=== PATIENT | female | born 1945 | race Caucasian/White ===

== ENCOUNTER 2024-05-06 12:37 | Inpatient (IN) ==
[2024-05-06 14:50] VITALS: BMI 21.0
[2024-05-06] MEDS: NS 1,000 ML IV 1,000 ML IV ONE (16:52)
[2024-05-06] MEDS: NS 1,000 ML IV 1,000 ML IV SCH (16:53)
--- NOTE | 2024-05-06 16:57 | CT ---
EXAM:BRAIN W/O CONHISTORY:s/p fall;COMPARISON:None.TECHNIQUE:Axial CT of the head is performed from the base of the skull through the vertex without contrast . Multiplaner reformats are generated from the original axial data.FINDINGS:There is no evidence of an acute intracranial hemorrhage or extra-axial fluid collection. There is no mass effect, midline shift, or evidence of cerebral edema. The ventricular size is normal. Cortical de la rosa-white matter differentiation is maintained without sulcal effacement. There is no evidence of an acute stage, large artery territorial infarction.The calvarium is intact. The paranasal sinuses and mastoid air cells are clear. The cerebellar tonsils are normal in position. No suprasellar asymmetry is identified.Age-related moderate generalized cortical volume loss is observed. The ventricular size is concordant. There are degenerative white matter changes affiliated with chronic small-vessel ischemia.IMPRESSION:No acute intracranial abnormalitiesChronic age related involutional changes of the brain parenchyma.Radiation dose reduction was achieved through individualized adjustment of kVP and/or mA, through adaptive statistical iterative reconstruction, and/or through automated tube current modulation.THIS IS AN ELECTRONICALLY VERIFIED FINAL REPORT05/06/2024 4:53 PM - Electronically signed by Julian Abebe MD
--- NOTE | 2024-05-06 18:38 | DR.H&P ---
H&P History & Physical for Day of: H&P Date: 05/06/24 Chief Complaint Chief Complaint: Multiple falls, Not eating, Low blood pressure History of Present Illness History of Present Illness: the patient is a 79-year-old white female who presents to the office with her with complaints of having had 4 falls yesterday. States that she is extremely weak and when she gets that she will lose her balance. Has been states that she is not eating or drinking at home. States she has lost a lot of weight. Patient does have dementia and states that she is drinking plenty of fluids. Complains of pain to right side of abdomen after falling. States she is voiding. States she does feel bad. Denies nausea and vomiting. past and states that he's not sure if she has not taken her medications incorrectly. States that he was administering her medications but finally let her start again. states she could have taken extra of her medication. Past Medical History Past Medical History: Arthritis (Rheumatoid Arthritis), Dementia and Dyslipidemia Past Surgical History Surgical History: and Hysterectomy Family History Family Medical History: [place] Social History Does patient currently use any type of tobacco product: No Type of Tobacco Use: None Does any household member use tobacco: No Alcohol Use: None Drug Use: None Medications Home Medications: Home Medications Medication Instructions Recorded Confirmed Type clonazepam 1 mg tablet 1 mg PO QPM PRN 05/06/24 05/06/24 History duloxetine 60 mg capsule,delayed 60 mg PO QDAY 05/06/24 05/06/24 History release levothyroxine 88 mcg tablet 88 mcg PO QDAY 05/06/24 05/06/24 History quetiapine 25 mg tablet 25 mg PO BID 05/06/24 05/06/24 History Allergies Allergies Allergy/AdvReac Type Severity Reaction Status Date / Time No Known Allergies Allergy Verified 05/06/24 18:00 Review of Systems Constitutional: Weakness (falls) Gastrointestinal: Abdominal Pain Physical Exam Vital Signs: Vital Signs Temperature 98.8 F Temperature 98.5 F Pulse Rate [Right Brachial] 85 Pulse Rate [Right Brachial] 82 Respiratory Rate 20 Respiratory Rate 17 Blood Pressure [Left Arm] 129/59 Blood Pressure [Left Arm] 110/62 O2 Sat by Pulse Oximetry 97 O2 Sat by Pulse Oximetry 100 Oriented: Person and Place Eyes: Normal Ear: Normal Nose: Normal Throat: Normal Respiratory: Clear Throughout Cardiovascular: Normal : Normal Auscultation: Bowel Sounds: Normal Palpation: Normal Tenderness: RLQ and Moderate Skin: Normal Musculoskeletal: Motor Deficit (BLE weakness) Psychiatric: Agitation Mood Description: Anxious Affect: Flat Speech Pattern: Clear Assessment/Plan (1) Recurrent falls: Status: Acute (2) Rheumatoid arthritis: Narrative Support Text: Stable with current medication regimen. Status: Chronic (3) Weakness: Narrative Support Text: Labs, CT Status: Acute (4) Hypotension: Narrative Support Text: Labs, CT, Monitor BP Status: Acute (5) Abdominal pain due to injury: Narrative Support Text: CT abdomen Status: Acute
[2024-05-06 18:56] LABS: BASOPHILS # (AUTO) 0.1 X10^3/uL (0.0-0.1); BASOPHILS % (AUTO) 0.8 % (0.2-1.0); EOSINOPHILS % (AUTO) 0.5 % (0.9-2.9); HEMATOCRIT 26.7 % (36.0-47.0); HEMOGLOBIN 8.9 g/dL (12.0-16.0); LYMPHOCYTES # (AUTO) 1.5 X10^3/uL (1.3-2.9); LYMPHOCYTES % (AUTO) 21.3 % (21.0-51.0); MEAN CORPUSCULAR HEMOGLOBIN 27.4 pg (27.0-34.0); MEAN CORPUSCULAR HGB CONC 33.3 g/dL (33.0-35.0); MEAN CORPUSCULAR VOLUME 82.3 fL (80.0-100.0); MEAN PLATELET VOLUME 7.7 fL (7.4-11.0); MONOCYTES # (AUTO) 1.7 x10^3/uL (0.3-0.8); MONOCYTES % (AUTO) 23.7 % (0.0-13.0); NEUTROPHILS # (AUTO) 3.8 x10^3/uL (2.2-4.8); NEUTROPHILS % (AUTO) 53.7 % (42.0-75.0); PLATELET COUNT 97 X10^3/uL (150.0-450.0); RED BLOOD COUNT 3.24 X10^6/uL (3.5-5.4); RED CELL DISTRIBUTION WIDTH 19.5 % (11.6-16.5); WHITE BLOOD COUNT 7.1 X10^3/uL (3.6-10.0)
[2024-05-06 19:03] LABS: ALANINE AMINOTRANSFERASE 8 Units/L (12-78); ALBUMIN 2.1 g/dL (3.4-5.0); ALKALINE PHOSPHATASE 119 Units/L (46-116); ASPARTATE AMINO TRANSFERASE 22 Units/L (15-37); BLOOD UREA NITROGEN 20 mg/dL (7-18); CALCIUM 8.2 mg/dL (8.5-10.1); CHLORIDE 101 mmol/L (98-107); COR CA(FOR HYPOALB) 9.7 mg/dL (8.5-10.1); CREATININE 1.38 mg/dL (0.55-1.02); GLUCOSE 108 mg/dL (65-99); MAGNESIUM 1.6 mg/dL (2.0-2.9); SODIUM 135 mmol/L (136-145); TOTAL PROTEIN 5.8 g/dL (6.4-8.2); TSH (3RD GENERATION) 0.264 uIU/mL (0.358-3.74); eGFR NON BLACK RACES 39 (>60)
[2024-05-06 19:19] LABS: ANISOCYTOSIS SLIGHT; PLATELET MORPHOLOGY COMMENT NORMAL (NORMAL); TARGET CELLS PRESENT
[2024-05-07 06:31] LABS: BASOPHILS # (AUTO) 0.1 X10^3/uL (0.0-0.1); BASOPHILS % (AUTO) 0.7 % (0.2-1.0); EOSINOPHILS # (AUTO) 0.1 x10^3/uL (0.0-0.2); EOSINOPHILS % (AUTO) 0.7 % (0.9-2.9); HEMATOCRIT 25.6 % (36.0-47.0); HEMOGLOBIN 8.6 g/dL (12.0-16.0); LYMPHOCYTES # (AUTO) 1.7 X10^3/uL (1.3-2.9); LYMPHOCYTES % (AUTO) 21.8 % (21.0-51.0); MEAN CORPUSCULAR HEMOGLOBIN 27.7 pg (27.0-34.0); MEAN CORPUSCULAR HGB CONC 33.6 g/dL (33.0-35.0); MEAN CORPUSCULAR VOLUME 82.4 fL (80.0-100.0); MEAN PLATELET VOLUME 7.6 fL (7.4-11.0); MONOCYTES # (AUTO) 1.7 x10^3/uL (0.3-0.8); MONOCYTES % (AUTO) 22.3 % (0.0-13.0); NEUTROPHILS # (AUTO) 4.2 x10^3/uL (2.2-4.8); NEUTROPHILS % (AUTO) 54.5 % (42.0-75.0); PLATELET COUNT 80 X10^3/uL (150.0-450.0); RED BLOOD COUNT 3.11 X10^6/uL (3.5-5.4); RED CELL DISTRIBUTION WIDTH 19.1 % (11.6-16.5); WHITE BLOOD COUNT 7.6 X10^3/uL (3.6-10.0)
[2024-05-07 06:47] LABS: ALANINE AMINOTRANSFERASE 9 Units/L (12-78); ALKALINE PHOSPHATASE 114 Units/L (46-116); ASPARTATE AMINO TRANSFERASE 21 Units/L (15-37); BLOOD UREA NITROGEN 19 mg/dL (7-18); CALCIUM 8.1 mg/dL (8.5-10.1); CARBON DIOXIDE 23.3 mmol/L (21-32); CHLORIDE 100 mmol/L (98-107); COR CA(FOR HYPOALB) 9.7 mg/dL (8.5-10.1); CREATININE 1.21 mg/dL (0.55-1.02); GLUCOSE 107 mg/dL (65-99); MAGNESIUM 1.6 mg/dL (2.0-2.9); POTASSIUM 3.8 mmol/L (3.5-5.1); SODIUM 134 mmol/L (136-145); TOTAL PROTEIN 5.5 g/dL (6.4-8.2); eGFR NON BLACK RACES 46 (>60)
[2024-05-07 07:02] LABS: BAND NEUTROPHILS % 4 % (0-10); METAMYELOCYTES % 2; MYELOCYTES % 2; PLATELET MORPHOLOGY COMMENT NORMAL (NORMAL)
[2024-05-07 07:03] LABS: ANISOCYTOSIS SLIGHT; TARGET CELLS SLIGHT
[2024-05-07] MEDS ORDERED: CONSULT PHARMACY - POTASSIUM & MAGNESIUM XX SCH (08:00)
--- NOTE | 2024-05-07 08:04 | RAD ---
EXAM:CHEST, PA/LAT ADULTHISTORY:s/p fall;COMPARISON:No relevant prior studies were available for comparison at the time of interpretation.TECHNIQUE:CHEST, PA/LAT ADULTFINDINGS:Chest:Lines and tubes: NoneMediastinum: Cardiac and mediastinal shadow is within normal limits for size and contour.Pulmonary vessels: No pulmonary vascular congestion.Lung sawyer: No suspicious airspace opacity.Pleura: No effusion. No pneumothorax.Bones and soft tissues: No acute osseous or soft tissue abnormality.IMPRESSION:1. No acute cardiopulmonary abnormalityTHIS IS AN ELECTRONICALLY VERIFIED FINAL REPORT05/07/2024 8:01 AM - Electronically signed by Jimmy Pollock MD
[2024-05-07] MEDS: MAG-OX TAB PO SCH ×2 (08:38→21:45)
--- NOTE | 2024-05-07 08:46 | CT ---
EXAM:CT bony pelvis without contrastHISTORY:Fall, bilateral hip painTECHNIQUE:Axial noncontrast images with coronal and sagittal reformats. Dose reduction procedures were used with mA/kv adjusted for body size.COMPARISON:NoneFINDINGS:The sacrum, coccyx, and SI joints appear intact. The pelvic bones appear intact. Hip joints are bilaterally intact. No joint erosions are identified. Proximal femurs appear intact. No hip joint effusions are identified. No periarticular soft tissue abnormality is identified. No definite pelvic soft tissue abnormality identified to the limitations of an unenhanced examination.IMPRESSION:No fractures identifiedTHIS IS AN ELECTRONICALLY VERIFIED FINAL REPORT05/07/2024 8:43 AM - Electronically signed by Javad Muniz MD
[2024-05-07 11:17] LABS: BILIRUBIN,URINE 2+ (NEGATIVE); BLOOD/HEMOGLOBIN,URINE 1+ (NEGATIVE); GLUCOSE, URINE NEGATIVE (NEGATIVE); KETONES,URINE 1+ (NEGATIVE); LEUKOCYTE ESTERASE ,URINE 1+ (NEGATIVE); NITRITES,URINE NEGATIVE (NEGATIVE); PROTEIN,URINE 2+ (NEGATIVE); UROBILINOGEN,URINE 3+ (NORMAL)
[2024-05-07 11:31] LABS: APPEARANCE,URINE CLEAR (CLEAR); COLOR,URINE AMBER (YELLOW)
[2024-05-07 11:33] LABS: BACTERIA,URINE TRACE /HPF (NEGATIVE); RBC,URINE 0-2 /HPF (0-3); SQUAMOUS EPITHELIAL CELL,UR RARE /HPF (NEGATIVE)
[2024-05-07 11:40] LABS: FREE T4 (FREE THYROXINE) 1.09 ng/dL (0.76-1.46); TSH (3RD GENERATION) 0.392 uIU/mL (0.358-3.74)
--- NOTE | 2024-05-07 13:34 | VAS ---
EXAM:CAROTID USHISTORY:DIZZINESS;COMPARISON:None available.TECHNIQUE:Multiple de la rosa scale, duplex and color flow Doppler images of the right and left carotid arterial system were obtained. The vertebral arterial system was evaluated as well.FINDINGS:Nonocclusive color flow Doppler is seen throughout the right and left carotid arterial system.There is moderate atherosclerotic plaque formation of the bilateral carotid bulbs and proximal ICAs with associated intimal thickening but without evidence for high-grade stenosis (>70%) or occlusion of the carotid arteries.The right and left vertebral artery demonstrate antegrade flow.There is patent flow and normal duplex waveforms within the right and left external carotid arteries.Peak right ICA velocity: 116 centimeter/seconds.Peak right CCA velocity: 80 centimeter/seconds.Right ICA to CCA ratio: 1.6.Peak left ICA velocity: 92 centimeter/seconds.Peak left CCA velocity: 89 centimeter/seconds.Left ICA to CCA ratio: 1.8.IMPRESSION:No hemodynamically significant carotid artery stenosis is seen.Moderate bilateral CCA and proximal ICA atherosclerosis.Appropriate, antegrade, vertebral arterial flow seen bilaterally.THIS IS AN ELECTRONICALLY VERIFIED FINAL REPORT05/07/2024 1:22 PM - Electronically signed by Ferdinand Cross MD
[2024-05-07] MEDS ORDERED: SEROquel TAB 25 mg PO SCH (18:00)
[2024-05-07] MEDS: CYMBALTA PO SCH (18:15)
[2024-05-07] MEDS: NS 1,000 ML IV 1,000 ML ONE (19:13)
[2024-05-07] MEDS: KLONOPIN TAB 1 MG PO SCH (21:45)
[2024-05-07] MEDS: SEROquel TAB 25 mg PO SCH (21:45)
[2024-05-08] MEDS: SYNTHROID 88 mcg TAB PO SCH (06:11)
[2024-05-08 06:29] LABS: BASOPHILS # (AUTO) 0.1 X10^3/uL (0.0-0.1); BASOPHILS % (AUTO) 1.2 % (0.2-1.0); EOSINOPHILS # (AUTO) 0.1 x10^3/uL (0.0-0.2); EOSINOPHILS % (AUTO) 1.8 % (0.9-2.9); HEMATOCRIT 22.5 % (36.0-47.0); HEMOGLOBIN 7.6 g/dL (12.0-16.0); LYMPHOCYTES # (AUTO) 1.4 X10^3/uL (1.3-2.9); LYMPHOCYTES % (AUTO) 23.8 % (21.0-51.0); MEAN CORPUSCULAR HEMOGLOBIN 27.8 pg (27.0-34.0); MEAN CORPUSCULAR HGB CONC 33.7 g/dL (33.0-35.0); MEAN CORPUSCULAR VOLUME 82.3 fL (80.0-100.0); MEAN PLATELET VOLUME 7.8 fL (7.4-11.0); MONOCYTES # (AUTO) 1.6 x10^3/uL (0.3-0.8); MONOCYTES % (AUTO) 26.7 % (0.0-13.0); NEUTROPHILS # (AUTO) 2.8 x10^3/uL (2.2-4.8); NEUTROPHILS % (AUTO) 46.5 % (42.0-75.0); PLATELET COUNT 81 X10^3/uL (150.0-450.0); RED BLOOD COUNT 2.74 X10^6/uL (3.5-5.4); RED CELL DISTRIBUTION WIDTH 19.6 % (11.6-16.5)
[2024-05-08 06:45] LABS: ALBUMIN 1.8 g/dL (3.4-5.0); CALCIUM 7.7 mg/dL (8.5-10.1); CARBON DIOXIDE 24.7 mmol/L (21-32); COR CA(FOR HYPOALB) 9.5 mg/dL (8.5-10.1); CREATININE 1.15 mg/dL (0.55-1.02); MAGNESIUM 1.8 mg/dL (2.0-2.9); POTASSIUM 3.7 mmol/L (3.5-5.1)
[2024-05-08] MEDS: CONSULT PHARMACY - POTASSIUM & MAGNESIUM XX SCH (07:00)
[2024-05-08 07:10] LABS: BAND NEUTROPHILS % 1 % (0-10)
[2024-05-08 07:11] LABS: ANISOCYTOSIS SLIGHT; METAMYELOCYTES % 1; MYELOCYTES % 1; PLATELET MORPHOLOGY COMMENT NORMAL (NORMAL); STOMATOCYTES SLIGHT
--- NOTE | 2024-05-08 07:41 | RAD ---
EXAM:HIP, RIGHTHISTORY:frequent fall history at home;COMPARISON:NoneFINDINGS:The visualized right pelvic ring is intact. No acute fracture or dislocation of the hip. Frog leg views of the hip demonstrate no evidence for fracture. No significant hip arthrosis.IMPRESSION:No acute fracture or dislocation.THIS IS AN ELECTRONICALLY VERIFIED FINAL REPORT05/08/2024 7:37 AM - Electronically signed by Javad Muniz MD
--- NOTE | 2024-05-08 08:18 | DR.H&P ---
H&P History & Physical for Day of: H&P Date: 05/06/24 Chief Complaint Chief Complaint: weakness, falls, increased confusion, History of Present Illness History of Present Illness: PT IS 79 WF, DIRECT ADMIT FROM DR [facility] [place] OFFICE WITH FAMILY REPORTING PT HAS BEEN VERY WEAK WITH MULTIPLE FALLS IN THE PAST FEW WEEKS. PT DOES HAVE HX OF MILD VASCULAR DEMENTIA BUT HAS HAD MARKED ACUTE DECLINE. PT REPORTS FREQUENT DIZZY SPELLS WITH NEAR SYNCOPE ASSOCIATED WITH FALLS. PT CO NO APPETITE. PT ADMITTED FOR TREATMENT AND EVALUATION OF ACUTE ILLNESS. Past Medical History Past Medical History: Arthritis (Rheumatoid Arthritis), Dementia and Dyslipidemia Past Surgical History Surgical History: and Hysterectomy Family History Family Medical History: [place] Social History Does patient currently use any type of tobacco product: No Type of Tobacco Use: None Does any household member use tobacco: No Alcohol Use: None Drug Use: None Medications Home Medications: Home Medications Medication Instructions Recorded Confirmed Type clonazepam 1 mg tablet 1 mg PO QPM PRN 05/06/24 05/06/24 History duloxetine 60 mg capsule,delayed 60 mg PO QDAY 05/06/24 05/06/24 History release levothyroxine 88 mcg tablet 88 mcg PO QDAY 05/06/24 05/06/24 History quetiapine 25 mg tablet 25 mg PO BID 05/06/24 05/06/24 History Allergies Allergies Allergy/AdvReac Type Severity Reaction Status Date / Time No Known Allergies Allergy Verified 05/06/24 18:00 Labs 05/08/24 05:10 05/08/24 05:10 Labs: Laboratory WBC 7.6 X10^3/uL (3.6-10.0) 05/07/24 05:23 RBC 3.11 X10^6/uL (3.5-5.4) L 05/07/24 05:23 Hgb 8.6 g/dL (12.0-16.0) L 05/07/24 05:23 Hct 25.6 % (36.0-47.0) L 05/07/24 05:23 MCV 82.4 fL (80.0-100.0) 05/07/24 05:23 MCH 27.7 pg (27.0-34.0) 05/07/24 05:23 MCHC 33.6 g/dL (33.0-35.0) 05/07/24 05:23 RDW 19.1 % (11.6-16.5) H 05/07/24 05:23 Plt Count 80 X10^3/uL (150.0-450.0) L 05/07/24 05:23 Plt Count Comment Decreased (ADEQUATE) A 05/07/24 05:23 MPV 7.6 fL (7.4-11.0) 05/07/24 05:23 Neut % (Auto) 54.5 % (42.0-75.0) 05/07/24 05:23 Lymph % (Auto) 21.8 % (21.0-51.0) 05/07/24 05:23 Motley % (Auto) 22.3 % (0.0-13.0) H 05/07/24 05:23 Eos % (Auto) 0.7 % (0.9-2.9) L 05/07/24 05:23 Baso % (Auto) 0.7 % (0.2-1.0) 05/07/24 05:23 Neut # (Auto) 4.2 x10^3/uL (2.2-4.8) 05/07/24 05:23 Lymph # (Auto) 1.7 X10^3/uL (1.3-2.9) 05/07/24 05:23 Motley # (Auto) 1.7 x10^3/uL (0.3-0.8) H 05/07/24 05:23 Eos # (Auto) 0.1 x10^3/uL (0.0-0.2) 05/07/24 05:23 Baso # (Auto) 0.1 X10^3/uL (0.0-0.1) 05/07/24 05:23 Absolute Nucleated RBC 0.1 /100WBC 05/07/24 05:23 Total Counted 100 05/07/24 05:23 Neutrophils % (Manual) 62 % (39-76) 05/07/24 05:23 Band Neutrophils % 4 % (0-10) 05/07/24 05:23 Lymphocytes % (Manual) 17 % (13-43) 05/07/24 05:23 Monocytes % (Manual) 13 % (4-9) H 05/07/24 05:23 Metamyelocytes % 2 05/07/24 05:23 Myelocytes % 2 05/07/24 05:23 Plt Morphology Comment Normal (NORMAL) 05/07/24 05:23 RBC Morphology Abnormal (NORMAL) A 05/07/24 05:23 Anisocytosis Slight A 05/07/24 05:23 Target Cells Slight A 05/07/24 05:23 Sodium 134 mmol/L (136-145) L 05/07/24 05:23 Corrected Sodium TNP 05/07/24 05:23 Potassium 3.8 mmol/L (3.5-5.1) 05/07/24 05:23 Chloride 100 mmol/L (98-107) 05/07/24 05:23 Carbon Dioxide 23.3 mmol/L (21-32) 05/07/24 05:23 BUN 19 mg/dL (7-18) H 05/07/24 05:23 Creatinine 1.21 mg/dL (0.55-1.02) H 05/07/24 05:23 Est GFR (MDRD) Af Amer 55 (>60) L 05/07/24 05:23 Est GFR (MDRD) Non-Af 46 (>60) L 05/07/24 05:23 Glucose 107 mg/dL (65-99) H 05/07/24 05:23 Calcium 8.1 mg/dL (8.5-10.1) L 05/07/24 05:23 Corrected Calcium 9.7 mg/dL (8.5-10.1) 05/07/24 05:23 Magnesium 1.6 mg/dL (2.0-2.9) L 05/07/24 05:23 Total Bilirubin 1.40 mg/dL (0.2-1.0) H 05/07/24 05:23 AST 21 Units/L (15-37) 05/07/24 05:23 ALT 9 Units/L (12-78) L 05/07/24 05:23 Alkaline Phosphatase 114 Units/L (46-116) 05/07/24 05:23 Total Protein 5.5 g/dL (6.4-8.2) L 05/07/24 05:23 Albumin 2.0 g/dL (3.4-5.0) L 05/07/24 05:23 Globulin 3.5 g/dL (2.5-4.5) 05/07/24 05:23 Albumin/Globulin Ratio 0.6 Ratio (1.1-2.1) L 05/07/24 05:23 Vitamin B12 350 pg/mL (193-986) 05/06/24 18:30 Folate 6.1 ng/mL (>8.6) L 05/06/24 18:30 Free T4 1.09 ng/dL (0.76-1.46) 05/07/24 05:23 TSH 3rd Generation 0.392 uIU/mL (0.358-3.74) 05/07/24 05:23 Specimen Type Catherized urine 05/07/24 11:02 Urine Color Jordyn (YELLOW) 05/07/24 11:02 Urine Appearance Clear (CLEAR) 05/07/24 11:02 Urine pH 6.0 (5.0 - 8.0) 05/07/24 11:02 Ur Specific [place] 1.020 (1.000-1.030) 05/07/24 11:02 Urine Protein 2+ (NEGATIVE) 05/07/24 11:02 Urine Glucose (UA) Negative (NEGATIVE) 05/07/24 11:02 Urine Ketones 1+ (NEGATIVE) 05/07/24 11:02 Urine Blood 1+ (NEGATIVE) 05/07/24 11:02 Urine Nitrite Negative (NEGATIVE) 05/07/24 11:02 Urine Bilirubin 2+ (NEGATIVE) 05/07/24 11:02 Urine Urobilinogen 3+ (NORMAL) 05/07/24 11:02 Ur Leukocyte Esterase 1+ (NEGATIVE) 05/07/24 11:02 Urine RBC 0-2 /HPF (0-3) 05/07/24 11:02 Urine WBC 0-2 /HPF (0-5) 05/07/24 11:02 Ur Squamous Epith Cells Rare /HPF (NEGATIVE) 05/07/24 11:02 Amorphous Sediment 1+ /HPF (NEGATIVE) 05/07/24 11:02 Urine Bacteria Trace /HPF (NEGATIVE) 05/07/24 11:02 Ur Culture Indicated? No/not indicated 05/07/24 11:02 Review of Systems Constitutional: Weakness (falls) Eyes: No Symptoms Reported ENT: No Symptoms Reported Respiratory: SOB with Excertion Cardiovascular: Light Headedness Gastrointestinal: Abdominal Pain Genitourinary: No Symptoms Reported Musculoskeletal: Back Pain Skin: No Symptoms Reported Neurological: Weakness, Confusion and Other (DIZZINESS) Physical Exam Vital Signs: Vital Signs Temperature 97.6 F Temperature 97.6 F Pulse Rate [Right Brachial] 98 Pulse Rate [Right Brachial] 93 Pulse Rate [Right Brachial] 73 Pulse Rate [Right Brachial] 82 Pulse Rate [Right Brachial] 95 Respiratory Rate 18 Respiratory Rate 18 Blood Pressure [Left Arm] 82/52 Blood Pressure [Left Arm] 82/48 Blood Pressure [Left Arm] 98/52 Blood Pressure [Left Arm] 98/50 Blood Pressure [Left Arm] 112/59 O2 Sat by Pulse Oximetry 96 O2 Sat by Pulse Oximetry 98 Oriented: Person and Place Eyes: Normal Ear: Normal Nose: Normal Throat: Normal Respiratory: RLL Diminished and LLL Diminished Cardiovascular: Normal : Normal Auscultation: Bowel Sounds: Decreased Palpation: Normal Tenderness: Epigastric and Mild Musculoskeletal: Hip, Back:Lumbar and Motor Deficit Psychiatric: Anxiety Mood Description: Anxious Affect: Anxious Speech Pattern: Clear and Appropriate Assessment/Plan (1) Confusion: Narrative Support Text: ADMIT, IV HYDRATION UC ON ADMISSION VERIFY HOME MEDICATIONS CT BRAIN, PELVIS PT EALUATION Status: Acute (2) Recurrent falls: Status: Acute (3) Rheumatoid arthritis: Status: Chronic (4) Weakness: Status: Acute (5) Hypotension: Status: Acute (6) Abdominal pain due to injury: Status: Acute
[2024-05-08 08:21] LABS: RETICULOCYTE % 1.84 % (0.8-2.2)
[2024-05-08] MEDS: DULCOLAX SUPPOSITORY 10 MG RECTAL ONE (09:15)
[2024-05-08] MEDS ORDERED: DULCOLAX SUPPOSITORY 10 MG ONE (09:28)
[2024-05-08] MEDS: K-DUR TAB 20 MEQ PO SCH (13:30)
[2024-05-08] MEDS: PROTONIX INJ 40 MG VIAL IVP SCH (13:30)
[2024-05-08] MEDS: MAG-OX TAB PO SCH (14:30)
--- NOTE | 2024-05-08 14:57 | CT ---
EXAM:CT ABDOMEN AND PELVIS WITH CONTRASTHISTORY:R/O ABDOMINAL BLEEDING;COMPARISON:None.TECHNIQUE:Axial CT images were obtained through the abdomen and pelvis after the intravenous administration of contrast. Coronal reformatted images were included.Informed written consent was obtained prior to contrast administration.All CT scans at this facility use dose modulation, iterative reconstruction, and/or weight based dosing when appropriate to reduce radiation dose to as low as reasonably achievable.FINDINGS:LOWER THORAX: Rounded atelectasis noted in the dependent right lower lobe. Pleural effusion or pneumothorax. Heart size appears normal. No pericardial effusion.ABDOMEN:LIVER: Within normal limits.GALLBLADDER: Within normal limits.SPLEEN: Within normal limits.PANCREAS: Within normal limits.KIDNEYS: Lower pole right renal cyst measures 17 mm. Hydronephrosis nephrolithiasis.ADRENAL GLANDS: Within normal limits.GI TRACT: Colonic diverticulosis without evidence of diverticulitis.LYMPH NODES: No abnormally enlarged nodes.VESSELS: Mild atherosclerosis.PERITONEUM / RETROPERITONEUM: Surgical clips are noted in the right lower quadrant, producing metallic artifact which obscures the adjacent structures. No free intraperitoneal fluid or gas demonstrated.PELVIS:BLADDER: Bladder appears within normal limits, deviated to the right by gas-filled rectum.GENITALS: Uterus and ovaries are surgically absentBONES: Degenerative changes noted within the lumbar spine and pelvis. No suspicious lytic or blastic lesions.IMPRESSION:No definite acute process demonstrated.Colonic diverticulosis without evidence of diverticulitis.No evidence of intra-abdominal bleeding as clinically questioned.THIS IS AN ELECTRONICALLY VERIFIED FINAL REPORT05/08/2024 2:54 PM - Electronically signed by Van Staples MD
[2024-05-08] MEDS ORDERED: MAG-OX TAB ONE (17:43)
[2024-05-08] MEDS: INJECTAFER 750 MG in NS 250 ML IV 250 ML IV NR (19:53)
[2024-05-09 06:46] LABS: BASOPHILS # (AUTO) 0.1 X10^3/uL (0.0-0.1); EOSINOPHILS # (AUTO) 0.1 x10^3/uL (0.0-0.2); EOSINOPHILS % (AUTO) 1.7 % (0.9-2.9); HEMATOCRIT 26.3 % (36.0-47.0); HEMOGLOBIN 8.9 g/dL (12.0-16.0); LYMPHOCYTES # (AUTO) 1.6 X10^3/uL (1.3-2.9); LYMPHOCYTES % (AUTO) 23.5 % (21.0-51.0); MEAN CORPUSCULAR HGB CONC 33.9 g/dL (33.0-35.0); MEAN CORPUSCULAR VOLUME 82.7 fL (80.0-100.0); MEAN PLATELET VOLUME 7.7 fL (7.4-11.0); MONOCYTES # (AUTO) 1.6 x10^3/uL (0.3-0.8); MONOCYTES % (AUTO) 22.2 % (0.0-13.0); NEUTROPHILS # (AUTO) 3.6 x10^3/uL (2.2-4.8); NEUTROPHILS % (AUTO) 51.6 % (42.0-75.0); PLATELET COUNT 92 X10^3/uL (150.0-450.0); RED BLOOD COUNT 3.19 X10^6/uL (3.5-5.4); RED CELL DISTRIBUTION WIDTH 19.6 % (11.6-16.5)
[2024-05-09 06:54] LABS: ALBUMIN 1.9 g/dL (3.4-5.0); ALKALINE PHOSPHATASE 140 Units/L (46-116); BLOOD UREA NITROGEN 13 mg/dL (7-18); CALCIUM 8.3 mg/dL (8.5-10.1); CHLORIDE 104 mmol/L (98-107); CREATININE 1.23 mg/dL (0.55-1.02); GLUCOSE 105 mg/dL (65-99); POTASSIUM 4.6 mmol/L (3.5-5.1); SODIUM 137 mmol/L (136-145); TOTAL PROTEIN 5.4 g/dL (6.4-8.2); eGFR NON BLACK RACES 45 (>60)
[2024-05-09 07:12] LABS: BAND NEUTROPHILS % 4 % (0-10)
[2024-05-09 07:13] LABS: ANISOCYTOSIS SLIGHT; PLATELET MORPHOLOGY COMMENT NORMAL (NORMAL); STOMATOCYTES SLIGHT; TARGET CELLS SLIGHT
[2024-05-09 07:17] LABS: ALANINE AMINOTRANSFERASE 6 Units/L (12-78); ASPARTATE AMINO TRANSFERASE 11 Units/L (15-37)
[2024-05-09] MEDS: HEMOCYTE-PLUS PO SCH (10:02)
--- NOTE | 2024-05-09 12:15 | RAD ---
EXAM:CHEST, 1 VIEWHISTORY:NEWMAN;COMPARISON:No relevant prior studies were available for comparison at the time of interpretation.TECHNIQUE:CHEST, 1 VIEWFINDINGS:Chest:Lines and tubes: NoneMediastinum: Cardiac and mediastinal shadow is within normal limits for size and contour.Pulmonary vessels: No pulmonary vascular congestion.Lung sawyer: No suspicious airspace opacity.Pleura: No effusion. No pneumothorax.Bones and soft tissues: No acute osseous or soft tissue abnormality.IMPRESSION:1. No acute cardiopulmonary abnormalityTHIS IS AN ELECTRONICALLY VERIFIED FINAL REPORT05/09/2024 12:12 PM - Electronically signed by Jimmy Pollock MD
[2024-05-09] MEDS: SUPREP BOWEL PREP KIT PO SCH (13:41)
--- NOTE | 2024-05-09 13:43 | MRI ---
EXAM:BRAIN W/O CONHISTORY:INFARCT / PT CONFUSED HX ALZHEIMER'S;COMPARISON:None.TECHNIQUE:Mu ltiplaner, multisequence MRI of the head is performed without IV contrast.FINDINGS:There is no evidence of restricted diffusion to indicate a recent infarction. No suprasellar asymmetry is identified. There is flattening of the anterior pituitary gland related to a partially empty CSF filled sella. There is generalized cortical volume loss of the supratentorial brain with ex vacuo dilatation of the ventricular system and thinning of the corpus callosum. The major flow voids of the anterior and posterior intracranial circulation are adequately maintained. Paranasal sinuses and mastoid air cells are predominantly clear. The internal auditory canal landmarks are symmetric. No intracranial hemorrhage is identified.Mild senescent periventricular white matter signal changes of the supratentorial brain are most likely related to normal aging or microangiopathic degeneration. No susceptibility artifact is identified.IMPRESSION:No acute intracranial abnormalities. Specifically, no evidence of restricted diffusion to indicate a recent infarction.Moderate cortical volume loss of the supratentorial brain associated with ex vacuo dilatation of the ventricular systemMild senescent white matter signal changes reflective of normal aging and/or microangiopathic degeneration.THIS IS AN ELECTRONICALLY VERIFIED FINAL REPORT05/09/2024 1:40 PM - Electronically signed by Julian Abebe MD
[2024-05-09] MEDS: READI-CAT 2 ONE (13:59)
[2024-05-10 06:34] LABS: BASOPHILS # (AUTO) 0.1 X10^3/uL (0.0-0.1); BASOPHILS % (AUTO) 1.1 % (0.2-1.0); EOSINOPHILS # (AUTO) 0.1 x10^3/uL (0.0-0.2); EOSINOPHILS % (AUTO) 0.9 % (0.9-2.9); HEMATOCRIT 22.8 % (36.0-47.0); HEMOGLOBIN 7.6 g/dL (12.0-16.0); LYMPHOCYTES # (AUTO) 1.3 X10^3/uL (1.3-2.9); LYMPHOCYTES % (AUTO) 18.5 % (21.0-51.0); MEAN CORPUSCULAR HEMOGLOBIN 27.6 pg (27.0-34.0); MEAN CORPUSCULAR HGB CONC 33.3 g/dL (33.0-35.0); MEAN CORPUSCULAR VOLUME 82.8 fL (80.0-100.0); MEAN PLATELET VOLUME 7.7 fL (7.4-11.0); MONOCYTES # (AUTO) 1.5 x10^3/uL (0.3-0.8); MONOCYTES % (AUTO) 21.7 % (0.0-13.0); NEUTROPHILS % (AUTO) 57.8 % (42.0-75.0); PLATELET COUNT 84 X10^3/uL (150.0-450.0); RED BLOOD COUNT 2.75 X10^6/uL (3.5-5.4); RED CELL DISTRIBUTION WIDTH 19.3 % (11.6-16.5)
[2024-05-10 06:47] LABS: ALANINE AMINOTRANSFERASE 9 Units/L (12-78); ALBUMIN 1.8 g/dL (3.4-5.0); ALKALINE PHOSPHATASE 122 Units/L (46-116); ASPARTATE AMINO TRANSFERASE 24 Units/L (15-37); BLOOD UREA NITROGEN 13 mg/dL (7-18); CARBON DIOXIDE 25.7 mmol/L (21-32); CHLORIDE 103 mmol/L (98-107); COR CA(FOR HYPOALB) 9.8 mg/dL (8.5-10.1); CREATININE 1.26 mg/dL (0.55-1.02); GLUCOSE 96 mg/dL (65-99); POTASSIUM 4.2 mmol/L (3.5-5.1); SODIUM 136 mmol/L (136-145); TOTAL PROTEIN 4.9 g/dL (6.4-8.2); eGFR NON BLACK RACES 44 (>60)
[2024-05-10 07:39] LABS: ANISOCYTOSIS SLIGHT; BAND NEUTROPHILS % 7 % (0-10); PLATELET MORPHOLOGY COMMENT NORMAL (NORMAL)
[2024-05-10] MEDS: LR 1,000 ML IV 1,000 ML IV ONE (11:29)
[2024-05-10] MEDS: DIPRIVAN VIAL 20 ML ONE (11:34)
[2024-05-10 19:00] LABS: HEMATOCRIT 27.6 % (36.0-47.0); HEMOGLOBIN 9.2 g/dL (12.0-16.0)
[2024-05-10] MEDS: CARAFATE PO SCH (21:28)
[2024-05-10] MEDS: DULCOLAX SUPPOSITORY 10 MG RECTAL ONE (21:29)
[2024-05-10] MEDS: NS 250 ML IV 250 ML IV ONE (21:49)
[2024-05-11 06:36] LABS: BASOPHILS # (AUTO) 0.1 X10^3/uL (0.0-0.1); EOSINOPHILS % (AUTO) 0.5 % (0.9-2.9); HEMATOCRIT 26.7 % (36.0-47.0); LYMPHOCYTES # (AUTO) 1.2 X10^3/uL (1.3-2.9); LYMPHOCYTES % (AUTO) 16.7 % (21.0-51.0); MEAN CORPUSCULAR HEMOGLOBIN 28.9 pg (27.0-34.0); MEAN CORPUSCULAR HGB CONC 33.9 g/dL (33.0-35.0); MEAN CORPUSCULAR VOLUME 85.3 fL (80.0-100.0); MEAN PLATELET VOLUME 7.7 fL (7.4-11.0); MONOCYTES # (AUTO) 1.7 x10^3/uL (0.3-0.8); MONOCYTES % (AUTO) 24.5 % (0.0-13.0); NEUTROPHILS % (AUTO) 57.3 % (42.0-75.0); PLATELET COUNT 73 X10^3/uL (150.0-450.0); RED BLOOD COUNT 3.13 X10^6/uL (3.5-5.4); RED CELL DISTRIBUTION WIDTH 18.9 % (11.6-16.5); WHITE BLOOD COUNT 7.1 X10^3/uL (3.6-10.0)
[2024-05-11 07:07] LABS: ALANINE AMINOTRANSFERASE 6 Units/L (12-78); ALBUMIN 1.7 g/dL (3.4-5.0); ALKALINE PHOSPHATASE 114 Units/L (46-116); ASPARTATE AMINO TRANSFERASE 23 Units/L (15-37); BLOOD UREA NITROGEN 15 mg/dL (7-18); CARBON DIOXIDE 25.5 mmol/L (21-32); CHLORIDE 103 mmol/L (98-107); COR CA(FOR HYPOALB) 9.8 mg/dL (8.5-10.1); CREATININE 1.35 mg/dL (0.55-1.02); GLUCOSE 96 mg/dL (65-99); POTASSIUM 4.1 mmol/L (3.5-5.1); SODIUM 137 mmol/L (136-145); TOTAL PROTEIN 4.8 g/dL (6.4-8.2); eGFR NON BLACK RACES 40 (>60)
[2024-05-11 07:26] LABS: PLATELET MORPHOLOGY COMMENT NORMAL (NORMAL)
[2024-05-11 07:27] LABS: ANISOCYTOSIS SLIGHT; BAND NEUTROPHILS % 4 % (0-10)
[2024-05-11] MEDS: NS 1,000 ML IV 1,000 ML IV ONE (10:16)
--- NOTE | 2024-05-11 14:07 | DR.PROGNOT ---
HOSPITAL PROGRESS NOTE Progress Note for Day of: Progress Note Date: 05/11/24 Chief Complaint Chief Complaint: Drowsiness History of Present Illness History of Present Illness: Patient seen with spouse and nurse at bedside. Had an EGD yesterday showing esophageal dysmotility with gastritis. Hemoglobin did drop a little bit last night. Patient still spend most of her time asleep. Does not seem to have very good appetite. PE: Elderly female resting comfortably in bed. Difficult to arouse. Heart regular rate and rhythm. Lungs are clear. Bilateral radial pulses are 2+. Belly is soft, nontender with bowel sounds present. Not easily aroused and not oriented to place or time. Past Medical Family Social History Allergies: Allergies No Known Allergies Allergy (Verified 05/06/24 18:00) Vital Signs Vital Signs: Vital Signs Temperature 98.1 F Temperature 97.1 F Pulse Rate [Right Brachial] 90 Pulse Rate [Right Brachial] 108 Respiratory Rate 18 Respiratory Rate 18 Blood Pressure [Left Arm] 110/54 Blood Pressure [Left Arm] 94/59 O2 Sat by Pulse Oximetry 95 O2 Sat by Pulse Oximetry 98 Physical Exam Oriented: Person and Place Eyes: Normal Ear: Normal Nose: Normal Throat: Normal Cardiovascular: Normal : Normal GI:Auscultation: Decreased GI:Palpation: Normal GI: Tenderness: Epigastric and Mild Skin: Normal Musculoskeletal: Hip, Back:Lumbar and Motor Deficit Psychiatric: Anxiety Mood Description: Anxious Affect: Anxious Speech Pattern: Clear and Inappropriate Laboratory and Diagnostics 05/11/24 05:16 05/11/24 05:16 Labs: 05/07/24 11:02 Urine,Clean Catch Urine Culture - Final Laboratory WBC 7.1 X10^3/uL (3.6-10.0) 05/11/24 05:16 RBC 3.13 X10^6/uL (3.5-5.4) L 05/11/24 05:16 Hgb 9.0 g/dL (12.0-16.0) L 05/11/24 05:16 Hct 26.7 % (36.0-47.0) L 05/11/24 05:16 MCV 85.3 fL (80.0-100.0) 05/11/24 05:16 MCH 28.9 pg (27.0-34.0) 05/11/24 05:16 MCHC 33.9 g/dL (33.0-35.0) 05/11/24 05:16 RDW 18.9 % (11.6-16.5) H 05/11/24 05:16 Plt Count 73 X10^3/uL (150.0-450.0) L 05/11/24 05:16 Plt Count Comment Decreased (ADEQUATE) A 05/11/24 05:16 MPV 7.7 fL (7.4-11.0) 05/11/24 05:16 Neut % (Auto) 57.3 % (42.0-75.0) 05/11/24 05:16 Lymph % (Auto) 16.7 % (21.0-51.0) L 05/11/24 05:16 [place] % (Auto) 24.5 % (0.0-13.0) H 05/11/24 05:16 Eos % (Auto) 0.5 % (0.9-2.9) L 05/11/24 05:16 Baso % (Auto) 1.0 % (0.2-1.0) 05/11/24 05:16 Neut # (Auto) 4.0 x10^3/uL (2.2-4.8) 05/11/24 05:16 Lymph # (Auto) 1.2 X10^3/uL (1.3-2.9) L 05/11/24 05:16 [place] # (Auto) 1.7 x10^3/uL (0.3-0.8) H 05/11/24 05:16 Eos # (Auto) 0.0 x10^3/uL (0.0-0.2) 05/11/24 05:16 Baso # (Auto) 0.1 X10^3/uL (0.0-0.1) 05/11/24 05:16 Absolute Nucleated RBC 0.2 /100WBC 05/11/24 05:16 Total Counted 100 05/11/24 05:16 Neutrophils % (Manual) 61 % (39-76) 05/11/24 05:16 Band Neutrophils % 4 % (0-10) 05/11/24 05:16 Lymphocytes % (Manual) 14 % (13-43) 05/11/24 05:16 Monocytes % (Manual) 20 % (4-9) H 05/11/24 05:16 Eosinophils % (Manual) 1 % (0-6) 05/11/24 05:16 Metamyelocytes % 1 05/08/24 05:10 Myelocytes % 1 05/08/24 05:10 Plt Morphology Comment Normal (NORMAL) 05/11/24 05:16 RBC Morphology Abnormal (NORMAL) A 05/11/24 05:16 Anisocytosis Slight A 05/11/24 05:16 Target Cells Slight A 05/09/24 05:28 Stomatocytes Slight A 05/09/24 05:28 Absolute Retic 0.0503 10^6/uL 05/08/24 05:10 Percent Retic 1.84 % (0.8-2.2) 05/08/24 05:10 Sodium 137 mmol/L (136-145) 05/11/24 05:16 Corrected Sodium TNP 05/11/24 05:16 Potassium 4.1 mmol/L (3.5-5.1) 05/11/24 05:16 Chloride 103 mmol/L (98-107) 05/11/24 05:16 Carbon Dioxide 25.5 mmol/L (21-32) 05/11/24 05:16 BUN 15 mg/dL (7-18) 05/11/24 05:16 Creatinine 1.35 mg/dL (0.55-1.02) H 05/11/24 05:16 Est GFR (MDRD) Af Amer 49 (>60) L 05/11/24 05:16 Est GFR (MDRD) Non-Af 40 (>60) L 05/11/24 05:16 Glucose 96 mg/dL (65-99) 05/11/24 05:16 Calcium 8.0 mg/dL (8.5-10.1) L 05/11/24 05:16 Corrected Calcium 9.8 mg/dL (8.5-10.1) 05/11/24 05:16 Magnesium 2.0 mg/dL (2.0-2.9) 05/09/24 05:28 Iron 17 ug/dL (50-175) L 05/08/24 05:10 TIBC 174 ug/dL (250-450) L 05/08/24 05:10 Transferrin 145 mg/dL (202-364) L 05/08/24 05:10 Ferritin 703 ng/mL (8-252) H 05/08/24 05:10 Total Bilirubin 3.60 mg/dL (0.2-1.0) H 05/11/24 05:16 AST 23 Units/L (15-37) 05/11/24 05:16 ALT 6 Units/L (12-78) L 05/11/24 05:16 Alkaline Phosphatase 114 Units/L (46-116) 05/11/24 05:16 Total Protein 4.8 g/dL (6.4-8.2) L 05/11/24 05:16 Albumin 1.7 g/dL (3.4-5.0) L 05/11/24 05:16 Globulin 3.1 g/dL (2.5-4.5) 05/11/24 05:16 Albumin/Globulin Ratio 0.5 Ratio (1.1-2.1) L 05/11/24 05:16 Vitamin B12 341 pg/mL (193-986) 05/08/24 05:10 Folate 6.0 ng/mL (>8.6) L 05/08/24 05:10 Free T4 1.09 ng/dL (0.76-1.46) 05/07/24 05:23 TSH 3rd Generation 0.392 uIU/mL (0.358-3.74) 05/07/24 05:23 Specimen Type Catherized urine 05/07/24 11:02 Urine Color Jordyn (YELLOW) 05/07/24 11:02 Urine Appearance Clear (CLEAR) 05/07/24 11:02 Urine pH 6.0 (5.0 - 8.0) 05/07/24 11:02 Ur Specific [place] 1.020 (1.000-1.030) 05/07/24 11:02 Urine Protein 2+ (NEGATIVE) 05/07/24 11:02 Urine Glucose (UA) Negative (NEGATIVE) 05/07/24 11:02 Urine Ketones 1+ (NEGATIVE) 05/07/24 11:02 Urine Blood 1+ (NEGATIVE) 05/07/24 11:02 Urine Nitrite Negative (NEGATIVE) 05/07/24 11:02 Urine Bilirubin 2+ (NEGATIVE) 05/07/24 11:02 Urine Urobilinogen 3+ (NORMAL) 05/07/24 11:02 Ur Leukocyte Esterase 1+ (NEGATIVE) 05/07/24 11:02 Urine RBC 0-2 /HPF (0-3) 05/07/24 11:02 Urine WBC 0-2 /HPF (0-5) 05/07/24 11:02 Ur Squamous Epith Cells Rare /HPF (NEGATIVE) 05/07/24 11:02 Amorphous Sediment 1+ /HPF (NEGATIVE) 05/07/24 11:02 Urine Bacteria Trace /HPF (NEGATIVE) 05/07/24 11:02 Ur Culture Indicated? No/not indicated 05/07/24 11:02 Blood Type A POSITIVE 05/10/24 09:40 Antibody Screen Negative 05/10/24 09:40 Crossmatch See Detail 05/10/24 09:40 Assessment and Plan 1: Acute on chronic anemia. Continue to monitor. Occult blood pending. 2: Gastritis. Continue per general surgery recommendations. 3: Moderate dementia. Continue supportive care.
[2024-05-12 06:16] LABS: BASOPHILS % (AUTO) 0.8 % (0.2-1.0); EOSINOPHILS # (AUTO) 0.1 x10^3/uL (0.0-0.2); EOSINOPHILS % (AUTO) 0.9 % (0.9-2.9); HEMOGLOBIN 8.7 g/dL (12.0-16.0); LYMPHOCYTES # (AUTO) 1.2 X10^3/uL (1.3-2.9); LYMPHOCYTES % (AUTO) 20.3 % (21.0-51.0); MEAN CORPUSCULAR HEMOGLOBIN 28.6 pg (27.0-34.0); MEAN CORPUSCULAR HGB CONC 33.6 g/dL (33.0-35.0); MEAN PLATELET VOLUME 7.8 fL (7.4-11.0); MONOCYTES # (AUTO) 1.6 x10^3/uL (0.3-0.8); MONOCYTES % (AUTO) 26.8 % (0.0-13.0); NEUTROPHILS # (AUTO) 3.1 x10^3/uL (2.2-4.8); NEUTROPHILS % (AUTO) 51.2 % (42.0-75.0); PLATELET COUNT 66 X10^3/uL (150.0-450.0); RED BLOOD COUNT 3.06 X10^6/uL (3.5-5.4); RED CELL DISTRIBUTION WIDTH 19.1 % (11.6-16.5); WHITE BLOOD COUNT 6.1 X10^3/uL (3.6-10.0)
[2024-05-12 06:29] LABS: ALANINE AMINOTRANSFERASE 8 Units/L (12-78); ALBUMIN 1.6 g/dL (3.4-5.0); ALKALINE PHOSPHATASE 113 Units/L (46-116); ASPARTATE AMINO TRANSFERASE 27 Units/L (15-37); BLOOD UREA NITROGEN 13 mg/dL (7-18); CALCIUM 7.5 mg/dL (8.5-10.1); CARBON DIOXIDE 25.5 mmol/L (21-32); CHLORIDE 103 mmol/L (98-107); COR CA(FOR HYPOALB) 9.4 mg/dL (8.5-10.1); CREATININE 1.28 mg/dL (0.55-1.02); GLUCOSE 96 mg/dL (65-99); POTASSIUM 3.6 mmol/L (3.5-5.1); SODIUM 136 mmol/L (136-145); TOTAL PROTEIN 4.6 g/dL (6.4-8.2); eGFR NON BLACK RACES 43 (>60)
[2024-05-12] MEDS ORDERED: CONSULT PHARMACY - POTASSIUM & MAGNESIUM XX SCH (07:00)
[2024-05-12 07:44] LABS: ANISOCYTOSIS SLIGHT; PLATELET MORPHOLOGY COMMENT NORMAL (NORMAL)
[2024-05-12 07:45] LABS: BAND NEUTROPHILS % 3 % (0-10)
[2024-05-12] MEDS: MAGNESIUM SULFATE 1 GRAM/100 mL PREMIX 1 G/100 ML BAG IV SCH (08:35)
[2024-05-12] MEDS ORDERED: K-DUR TAB 20 MEQ PO SCH (09:00)
[2024-05-12] MEDS ORDERED: MAG-OX TAB PO SCH (10:00)
[2024-05-12] MEDS: K-RIDER 10 MEQ/100 ML WATER 10 MEQ/100 ML BAG IV SCH (10:12)
--- NOTE | 2024-05-12 11:23 | NOTE.SOAP ---
Soap Note Note for Day of Date of Exam: 05/12/24 Subjective Data Subjective Data: Pt seen with and nursing at bedside. More alert yesterday PM and today. No behaviors. Still not eating well. Hgb with slight drop, again. Still no occult stool due to no BMs. Vitals stable, but some lower BPs and mild tachycardia overall. Objective Data Objective Data: Elderly female in NAD, easy to fall asleep. RRR. CTA with shallow respirations. Bowel sounds present, belly soft/NT/ND. Oriented to person. Assessment Assessment: 1) Acute on Chronic anemia, due to poor PO intake and GI losses. Need occult stool, but likely still positive. Monitor labs. would like to proceed with colonoscopy, but pt declined prep last week. They plan to discuss it today and will let us know. 2) Gastritis. Cont current 3) esophageal dysmotility. Need ST recs. Monitor closely for aspiration.
[2024-05-12] MEDS: COLACE CAP 100 MG PO PRN (11:48)
[2024-05-12] MEDS: PERIACTIN TAB 4 MG PO PRN (17:00)
[2024-05-13 04:21] VITALS: O2SAT 93
[2024-05-13 06:21] LABS: BASOPHILS # (AUTO) 0.1 X10^3/uL (0.0-0.1); BASOPHILS % (AUTO) 1.1 % (0.2-1.0); EOSINOPHILS # (AUTO) 0.1 x10^3/uL (0.0-0.2); EOSINOPHILS % (AUTO) 1.2 % (0.9-2.9); HEMATOCRIT 28.8 % (36.0-47.0); HEMOGLOBIN 9.7 g/dL (12.0-16.0); LYMPHOCYTES # (AUTO) 1.6 X10^3/uL (1.3-2.9); LYMPHOCYTES % (AUTO) 22.1 % (21.0-51.0); MEAN CORPUSCULAR HEMOGLOBIN 28.9 pg (27.0-34.0); MEAN CORPUSCULAR HGB CONC 33.7 g/dL (33.0-35.0); MEAN CORPUSCULAR VOLUME 85.7 fL (80.0-100.0); MONOCYTES # (AUTO) 1.9 x10^3/uL (0.3-0.8); NEUTROPHILS # (AUTO) 3.5 x10^3/uL (2.2-4.8); NEUTROPHILS % (AUTO) 49.6 % (42.0-75.0); PLATELET COUNT 54 X10^3/uL (150.0-450.0); RED BLOOD COUNT 3.37 X10^6/uL (3.5-5.4); RED CELL DISTRIBUTION WIDTH 19.3 % (11.6-16.5); WHITE BLOOD COUNT 7.1 X10^3/uL (3.6-10.0)
[2024-05-13 06:50] LABS: ANISOCYTOSIS SLIGHT; BAND NEUTROPHILS % 9 % (0-10); PLATELET MORPHOLOGY COMMENT NORMAL (NORMAL)
[2024-05-13 06:54] LABS: ALANINE AMINOTRANSFERASE 15 Units/L (12-78); ALBUMIN 1.8 g/dL (3.4-5.0); ALKALINE PHOSPHATASE 136 Units/L (46-116); ASPARTATE AMINO TRANSFERASE 38 Units/L (15-37); BLOOD UREA NITROGEN 12 mg/dL (7-18); CALCIUM 7.8 mg/dL (8.5-10.1); CARBON DIOXIDE 26.2 mmol/L (21-32); CHLORIDE 100 mmol/L (98-107); COR CA(FOR HYPOALB) 9.6 mg/dL (8.5-10.1); CREATININE 1.15 mg/dL (0.55-1.02); GLUCOSE 96 mg/dL (65-99); MAGNESIUM 2.1 mg/dL (2.0-2.9); POTASSIUM 3.7 mmol/L (3.5-5.1); SODIUM 134 mmol/L (136-145); TOTAL PROTEIN 5.2 g/dL (6.4-8.2); eGFR NON BLACK RACES 48 (>60)
[2024-05-13 09:59] VITALS: BP 123/68; PULSE 106; RESP 18; TEMP 98.7
--- NOTE | 2024-05-17 09:19 | PCM.PROG ---
Progress Note Progress Note for Day of Date of Exam: 05/10/24 Subjective Subjective: Patient is a 79 year old female who was admitted on 05/06 with generalized weakness, frequent falls, poor appetite and abdominal pain. She has a history of vascular dementia. Upon admission, we obtained a ct brain, chest xray, and pelvis CT that showed no acute abnormalities. Her hgb was noted to be low at 8.9 and she was started on po iron replacement. On 05/07, we obtained a CT carotid and that showed "no hemodynamically significant carotid artery stenosis seen, moderate bilateral CCA and proximal ICA atherosclerosis." We also obtained a right hip xray that was negative for fracture. 05/08, we obtained a ct abd and pelvis w contrast that showed no definite acute process, colonic diverticulosis without evidence of diverticulitis. Urine culture resulted no growth. 05/09, she had a chest xray that was negative. Yesterday, we obtained a CT brain that showed "No acute intracranial abnormalities. Specifically, no evidence of restricted diffusion to indicate a recent infarction." Dr. Sinha was consulted and she is planned to have a endoscopy today. She refused colonoscopy. AM labs: wbc 7.0, hgb 7.6, bun 13/creatinine 1.26, bilirubin 2.30, Ast 24/Alt 9/Alk Phos 122. When the patient is stable for discharge, we have recommended short term rehab placement. Family is agreeable and voices interest in [facility]. Case management is working to arrange this. Past Medical Family Social History Allergies: Allergies No Known Allergies Allergy (Verified 05/06/24 18:00) Physical Exam Oriented: Person and Place Eyes: Normal Ear: Normal Nose: Normal Throat: Normal Respiratory: Diminished Cardiovascular: Normal : Normal Auscultation: Bowel Sounds: Decreased Tenderness: Epigastric and Mild Skin: Normal Musculoskeletal: Hip, Back:Lumbar and Motor Deficit Psychiatric: Anxiety Mood Description: Anxious Affect: Anxious Speech Pattern: Clear and Inappropriate Laboratory and Diagnostics 05/13/24 05:15 05/13/24 05:15 Labs: 05/07/24 11:02 Urine,Clean Catch Urine Culture - Final Laboratory WBC 7.1 X10^3/uL (3.6-10.0) 05/13/24 05:15 RBC 3.37 X10^6/uL (3.5-5.4) L 05/13/24 05:15 Hgb 9.7 g/dL (12.0-16.0) L 05/13/24 05:15 Hct 28.8 % (36.0-47.0) L 05/13/24 05:15 MCV 85.7 fL (80.0-100.0) 05/13/24 05:15 MCH 28.9 pg (27.0-34.0) 05/13/24 05:15 MCHC 33.7 g/dL (33.0-35.0) 05/13/24 05:15 RDW 19.3 % (11.6-16.5) H 05/13/24 05:15 Plt Count 54 X10^3/uL (150.0-450.0) L 05/13/24 05:15 Plt Count Comment Decreased (ADEQUATE) A 05/13/24 05:15 MPV 8.0 fL (7.4-11.0) 05/13/24 05:15 Neut % (Auto) 49.6 % (42.0-75.0) 05/13/24 05:15 Lymph % (Auto) 22.1 % (21.0-51.0) 05/13/24 05:15 [place] % (Auto) 26.0 % (0.0-13.0) H 05/13/24 05:15 Eos % (Auto) 1.2 % (0.9-2.9) 05/13/24 05:15 Baso % (Auto) 1.1 % (0.2-1.0) H 05/13/24 05:15 Neut # (Auto) 3.5 x10^3/uL (2.2-4.8) 05/13/24 05:15 Lymph # (Auto) 1.6 X10^3/uL (1.3-2.9) 05/13/24 05:15 [place] # (Auto) 1.9 x10^3/uL (0.3-0.8) H 05/13/24 05:15 Eos # (Auto) 0.1 x10^3/uL (0.0-0.2) 05/13/24 05:15 Baso # (Auto) 0.1 X10^3/uL (0.0-0.1) 05/13/24 05:15 Absolute Nucleated RBC 0.3 /100WBC 05/13/24 05:15 Total Counted 100 05/13/24 05:15 Neutrophils % (Manual) 60 % (39-76) 05/13/24 05:15 Band Neutrophils % 9 % (0-10) 05/13/24 05:15 Lymphocytes % (Manual) 14 % (13-43) 05/13/24 05:15 Monocytes % (Manual) 15 % (4-9) H 05/13/24 05:15 Eosinophils % (Manual) 2 % (0-6) 05/13/24 05:15 Metamyelocytes % 1 05/08/24 05:10 Myelocytes % 1 05/08/24 05:10 Atypical Lymphocytes Present 05/12/24 05:34 Plt Morphology Comment Normal (NORMAL) 05/13/24 05:15 RBC Morphology Abnormal (NORMAL) A 05/13/24 05:15 Anisocytosis Slight A 05/13/24 05:15 Target Cells Slight A 05/09/24 05:28 Stomatocytes Slight A 05/09/24 05:28 Absolute Retic 0.0503 10^6/uL 05/08/24 05:10 Percent Retic 1.84 % (0.8-2.2) 05/08/24 05:10 Sodium 134 mmol/L (136-145) L 05/13/24 05:15 Corrected Sodium TNP 05/13/24 05:15 Potassium 3.7 mmol/L (3.5-5.1) 05/13/24 05:15 Chloride 100 mmol/L (98-107) 05/13/24 05:15 Carbon Dioxide 26.2 mmol/L (21-32) 05/13/24 05:15 BUN 12 mg/dL (7-18) 05/13/24 05:15 Creatinine 1.15 mg/dL (0.55-1.02) H 05/13/24 05:15 Est GFR (MDRD) Af Amer 59 (>60) 05/13/24 05:15 Est GFR (MDRD) Non-Af 48 (>60) L 05/13/24 05:15 Glucose 96 mg/dL (65-99) 05/13/24 05:15 Calcium 7.8 mg/dL (8.5-10.1) L 05/13/24 05:15 Corrected Calcium 9.6 mg/dL (8.5-10.1) 05/13/24 05:15 Magnesium 2.1 mg/dL (2.0-2.9) 05/13/24 05:15 Iron 17 ug/dL (50-175) L 05/08/24 05:10 TIBC 174 ug/dL (250-450) L 05/08/24 05:10 Transferrin 145 mg/dL (202-364) L 05/08/24 05:10 Ferritin 703 ng/mL (8-252) H 05/08/24 05:10 Total Bilirubin 4.30 mg/dL (0.2-1.0) H 05/13/24 05:15 AST 38 Units/L (15-37) H 05/13/24 05:15 ALT 15 Units/L (12-78) 05/13/24 05:15 Alkaline Phosphatase 136 Units/L (46-116) H 05/13/24 05:15 Total Protein 5.2 g/dL (6.4-8.2) L 05/13/24 05:15 Albumin 1.8 g/dL (3.4-5.0) L 05/13/24 05:15 Globulin 3.4 g/dL (2.5-4.5) 05/13/24 05:15 Albumin/Globulin Ratio 0.5 Ratio (1.1-2.1) L 05/13/24 05:15 Vitamin B12 341 pg/mL (193-986) 05/08/24 05:10 Folate 6.0 ng/mL (>8.6) L 05/08/24 05:10 Free T4 1.09 ng/dL (0.76-1.46) 05/07/24 05:23 TSH 3rd Generation 0.392 uIU/mL (0.358-3.74) 05/07/24 05:23 Specimen Type Catherized urine 05/07/24 11:02 Urine Color Jordyn (YELLOW) 05/07/24 11:02 Urine Appearance Clear (CLEAR) 05/07/24 11:02 Urine pH 6.0 (5.0 - 8.0) 05/07/24 11:02 Ur Specific [place] 1.020 (1.000-1.030) 05/07/24 11:02 Urine Protein 2+ (NEGATIVE) 05/07/24 11:02 Urine Glucose (UA) Negative (NEGATIVE) 05/07/24 11:02 Urine Ketones 1+ (NEGATIVE) 05/07/24 11:02 Urine Blood 1+ (NEGATIVE) 05/07/24 11:02 Urine Nitrite Negative (NEGATIVE) 05/07/24 11:02 Urine Bilirubin 2+ (NEGATIVE) 05/07/24 11:02 Urine Urobilinogen 3+ (NORMAL) 05/07/24 11:02 Ur Leukocyte Esterase 1+ (NEGATIVE) 05/07/24 11:02 Urine RBC 0-2 /HPF (0-3) 05/07/24 11:02 Urine WBC 0-2 /HPF (0-5) 05/07/24 11:02 Ur Squamous Epith Cells Rare /HPF (NEGATIVE) 05/07/24 11:02 Amorphous Sediment 1+ /HPF (NEGATIVE) 05/07/24 11:02 Urine Bacteria Trace /HPF (NEGATIVE) 05/07/24 11:02 Ur Culture Indicated? No/not indicated 05/07/24 11:02 Tissue Pathology See comment. 05/10/24 11:48 Blood Type A POSITIVE 05/10/24 09:40 Antibody Screen Negative 05/10/24 09:40 Crossmatch See Detail 05/10/24 09:40 Plan (1) Confusion: Status: Acute Plan: Type/Screen. Continue per general surgery recommendations. Plan for AM labs. (2) Recurrent falls: Status: Acute (3) Rheumatoid arthritis: Status: Chronic (4) Weakness: Status: Acute (5) Hypotension: Status: Acute (6) Abdominal pain due to injury: Status: Acute
--- NOTE | 2024-05-17 09:19 | PCM.PROG ---
Progress Note Progress Note for Day of Date of Exam: 05/09/24 Subjective Subjective: Patient is a 79 year old female who was admitted on 05/06 with generalized weakness, frequent falls, poor appetite and abdominal pain. She has a history of vascular dementia. Upon admission, we obtained a ct brain, chest xray, and pelvis CT that showed no acute abnormalities. Her hgb was noted to be low at 8.9 and she was started on po iron replacement. On 05/07, we obtained a CT carotid and that showed "no hemodynamically significant carotid artery stenosis seen, moderate bilateral CCA and proximal ICA atherosclerosis." We also obtained a right hip xray that was negative for fracture. 05/08, we obtained a ct abd and pelvis w contrast that showed no definite acute process, colonic diverticulosis without evidence of diverticulitis. Urine culture showing no growth. AM labs: wbc 7.0, hgb 8.9, bun 13/creatinine 1.23. When the patient is stable for discharge, we have recommended short term rehab placement. Family is agreeable and voices interest in [facility]. Case management is working to arrange this. Past Medical Family Social History Allergies: Allergies No Known Allergies Allergy (Verified 05/06/24 18:00) Physical Exam Oriented: Person and Place Eyes: Normal Ear: Normal Nose: Normal Throat: Normal Respiratory: Diminished Cardiovascular: Normal : Normal Auscultation: Bowel Sounds: Decreased Tenderness: Epigastric and Mild Skin: Normal Musculoskeletal: Hip, Back:Lumbar and Motor Deficit Psychiatric: Anxiety Mood Description: Anxious Affect: Anxious Speech Pattern: Clear and Inappropriate Laboratory and Diagnostics 05/13/24 05:15 05/13/24 05:15 Labs: 05/07/24 11:02 Urine,Clean Catch Urine Culture - Final Laboratory WBC 7.1 X10^3/uL (3.6-10.0) 05/13/24 05:15 RBC 3.37 X10^6/uL (3.5-5.4) L 05/13/24 05:15 Hgb 9.7 g/dL (12.0-16.0) L 05/13/24 05:15 Hct 28.8 % (36.0-47.0) L 05/13/24 05:15 MCV 85.7 fL (80.0-100.0) 05/13/24 05:15 MCH 28.9 pg (27.0-34.0) 05/13/24 05:15 MCHC 33.7 g/dL (33.0-35.0) 05/13/24 05:15 RDW 19.3 % (11.6-16.5) H 05/13/24 05:15 Plt Count 54 X10^3/uL (150.0-450.0) L 05/13/24 05:15 Plt Count Comment Decreased (ADEQUATE) A 05/13/24 05:15 MPV 8.0 fL (7.4-11.0) 05/13/24 05:15 Neut % (Auto) 49.6 % (42.0-75.0) 05/13/24 05:15 Lymph % (Auto) 22.1 % (21.0-51.0) 05/13/24 05:15 [place] % (Auto) 26.0 % (0.0-13.0) H 05/13/24 05:15 Eos % (Auto) 1.2 % (0.9-2.9) 05/13/24 05:15 Baso % (Auto) 1.1 % (0.2-1.0) H 05/13/24 05:15 Neut # (Auto) 3.5 x10^3/uL (2.2-4.8) 05/13/24 05:15 Lymph # (Auto) 1.6 X10^3/uL (1.3-2.9) 05/13/24 05:15 [place] # (Auto) 1.9 x10^3/uL (0.3-0.8) H 05/13/24 05:15 Eos # (Auto) 0.1 x10^3/uL (0.0-0.2) 05/13/24 05:15 Baso # (Auto) 0.1 X10^3/uL (0.0-0.1) 05/13/24 05:15 Absolute Nucleated RBC 0.3 /100WBC 05/13/24 05:15 Total Counted 100 05/13/24 05:15 Neutrophils % (Manual) 60 % (39-76) 05/13/24 05:15 Band Neutrophils % 9 % (0-10) 05/13/24 05:15 Lymphocytes % (Manual) 14 % (13-43) 05/13/24 05:15 Monocytes % (Manual) 15 % (4-9) H 05/13/24 05:15 Eosinophils % (Manual) 2 % (0-6) 05/13/24 05:15 Metamyelocytes % 1 05/08/24 05:10 Myelocytes % 1 05/08/24 05:10 Atypical Lymphocytes Present 05/12/24 05:34 Plt Morphology Comment Normal (NORMAL) 05/13/24 05:15 RBC Morphology Abnormal (NORMAL) A 05/13/24 05:15 Anisocytosis Slight A 05/13/24 05:15 Target Cells Slight A 05/09/24 05:28 Stomatocytes Slight A 05/09/24 05:28 Absolute Retic 0.0503 10^6/uL 05/08/24 05:10 Percent Retic 1.84 % (0.8-2.2) 05/08/24 05:10 Sodium 134 mmol/L (136-145) L 05/13/24 05:15 Corrected Sodium TNP 05/13/24 05:15 Potassium 3.7 mmol/L (3.5-5.1) 05/13/24 05:15 Chloride 100 mmol/L (98-107) 05/13/24 05:15 Carbon Dioxide 26.2 mmol/L (21-32) 05/13/24 05:15 BUN 12 mg/dL (7-18) 05/13/24 05:15 Creatinine 1.15 mg/dL (0.55-1.02) H 05/13/24 05:15 Est GFR (MDRD) Af Amer 59 (>60) 05/13/24 05:15 Est GFR (MDRD) Non-Af 48 (>60) L 05/13/24 05:15 Glucose 96 mg/dL (65-99) 05/13/24 05:15 Calcium 7.8 mg/dL (8.5-10.1) L 05/13/24 05:15 Corrected Calcium 9.6 mg/dL (8.5-10.1) 05/13/24 05:15 Magnesium 2.1 mg/dL (2.0-2.9) 05/13/24 05:15 Iron 17 ug/dL (50-175) L 05/08/24 05:10 TIBC 174 ug/dL (250-450) L 05/08/24 05:10 Transferrin 145 mg/dL (202-364) L 05/08/24 05:10 Ferritin 703 ng/mL (8-252) H 05/08/24 05:10 Total Bilirubin 4.30 mg/dL (0.2-1.0) H 05/13/24 05:15 AST 38 Units/L (15-37) H 05/13/24 05:15 ALT 15 Units/L (12-78) 05/13/24 05:15 Alkaline Phosphatase 136 Units/L (46-116) H 05/13/24 05:15 Total Protein 5.2 g/dL (6.4-8.2) L 05/13/24 05:15 Albumin 1.8 g/dL (3.4-5.0) L 05/13/24 05:15 Globulin 3.4 g/dL (2.5-4.5) 05/13/24 05:15 Albumin/Globulin Ratio 0.5 Ratio (1.1-2.1) L 05/13/24 05:15 Vitamin B12 341 pg/mL (193-986) 05/08/24 05:10 Folate 6.0 ng/mL (>8.6) L 05/08/24 05:10 Free T4 1.09 ng/dL (0.76-1.46) 05/07/24 05:23 TSH 3rd Generation 0.392 uIU/mL (0.358-3.74) 05/07/24 05:23 Specimen Type Catherized urine 05/07/24 11:02 Urine Color Jordyn (YELLOW) 05/07/24 11:02 Urine Appearance Clear (CLEAR) 05/07/24 11:02 Urine pH 6.0 (5.0 - 8.0) 05/07/24 11:02 Ur Specific [place] 1.020 (1.000-1.030) 05/07/24 11:02 Urine Protein 2+ (NEGATIVE) 05/07/24 11:02 Urine Glucose (UA) Negative (NEGATIVE) 05/07/24 11:02 Urine Ketones 1+ (NEGATIVE) 05/07/24 11:02 Urine Blood 1+ (NEGATIVE) 05/07/24 11:02 Urine Nitrite Negative (NEGATIVE) 05/07/24 11:02 Urine Bilirubin 2+ (NEGATIVE) 05/07/24 11:02 Urine Urobilinogen 3+ (NORMAL) 05/07/24 11:02 Ur Leukocyte Esterase 1+ (NEGATIVE) 05/07/24 11:02 Urine RBC 0-2 /HPF (0-3) 05/07/24 11:02 Urine WBC 0-2 /HPF (0-5) 05/07/24 11:02 Ur Squamous Epith Cells Rare /HPF (NEGATIVE) 05/07/24 11:02 Amorphous Sediment 1+ /HPF (NEGATIVE) 05/07/24 11:02 Urine Bacteria Trace /HPF (NEGATIVE) 05/07/24 11:02 Ur Culture Indicated? No/not indicated 05/07/24 11:02 Tissue Pathology See comment. 05/10/24 11:48 Blood Type A POSITIVE 05/10/24 09:40 Antibody Screen Negative 05/10/24 09:40 Crossmatch See Detail 05/10/24 09:40 Plan (1) Confusion: Status: Acute Plan: Obtain chest xray, brain MRI. Plan for repeat AM labs. (2) Recurrent falls: Status: Acute (3) Rheumatoid arthritis: Status: Chronic (4) Weakness: Status: Acute (5) Hypotension: Status: Acute (6) Abdominal pain due to injury: Status: Acute
== END 2024-05-13 11:50 | DRG 392 ==
LOC: MED/SURG
PROVIDERS: ADMIT Internal Medicine; ATTEND Internal Medicine
DX: F03.90 Unspecified dementia, unspecified severity, without behavioral disturbance, psychotic disturbance, mood disturbance, and anxiety; M25.552 Pain in left hip; R26.89 Other abnormalities of gait and mobility; R10.84 Generalized abdominal pain; R29.6 Repeated falls; M06.8A Other specified rheumatoid arthritis, other specified site; R42 Dizziness and giddiness; R55 Syncope and collapse; E87.1 Hypo-osmolality and hyponatremia; D64.89 Other specified anemias; I95.89 Other hypotension; K25.9 Gastric ulcer, unspecified as acute or chronic, without hemorrhage or perforation; E83.42 Hypomagnesemia; M25.551 Pain in right hip; Z68.22 Body mass index [BMI] 22.0-22.9, adult; R53.1 Weakness; C16.9 Malignant neoplasm of stomach, unspecified; R63.0 Anorexia; K22.4 Dyskinesia of esophagus; R41.82 Altered mental status, unspecified; K57.30 Diverticulosis of large intestine without perforation or abscess without bleeding; E78.5 Hyperlipidemia, unspecified